=== PATIENT | male | born 1990 ===

== ENCOUNTER 2023-05-24 09:45 | Outpatient (CLI) | payer BC, SELFPAY ==
--- NOTE | ~2023-05-24 | US_ITS ---
EXAMINATION: US thyroid DATE: 05/24/2023 10:04 INDICATION: Thyroid nodule on outside institution CT TECHNIQUE: Multiple ultrasound images of the thyroid were obtained. COMPARISON: None. FINDINGS: The right thyroid lobe measures 6.0 x 1.8 x 1.7 cm. The left thyroid lobe measures 5.8 x 1.7 x 1.6 c m. Thyroid isthmus measures 4 mm in thickness. 1.2 cm wider than tall solid isoechoic nodule with ill -defined margins and coarse shadowing calcification (TI-RADS 4, moderately suspicious , FNA if >=1.5 cm, annual followup is >=1 cm). No other nodules identified. There is normal echotexture, echogenicit y and vascular flow throughout the surrounding thyroid gland. IMPRESSION: 1. 1.2 cm TI RADS 4 left thyroid nodule for which annual follow-up ultrasound would be recommended. Reviewed, dictated and finalized at location A. IMPRESSION: 1. 1.2 cm TI RADS 4 left thyroid nodule for which annual follow-up ultrasound w ould be recommended.
== END 2023-05-24 09:46 ==
LOC: MICIMG 09:46
DX: E04.1 Nontoxic single thyroid nodule (principal)
CPT/HCPCS: 76536